=== PATIENT | male | born 2000 | race Caucasian/White ===

== ENCOUNTER 2021-12-11 17:03 | Emergency (ER) | payer SELFPAY ==
[2021-12-11 17:04] VITALS: BP 143/80; PULSE 120; RESP 18; TEMP 37.2; O2SAT 94
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
[2021-12-11] MEDS: IBUPROFEN 400 MG TABLET 800 MG PO (17:29)
[2021-12-11 17:34] VITALS: PULSE 92; RESP 16; O2SAT 100
== END 2021-12-11 17:35 | disposition home or self-care (01) ==
PROVIDERS: Emergency Provider Emergency Medicine
DX: S09.93XA Unspecified injury of face, initial encounter (principal); Y00.XXXA Assault by blunt object, initial encounter
CPT/HCPCS: 99282; A9270